=== PATIENT | male | born 1960 | race Caucasian/White ===

== ENCOUNTER → 2016-05-16 | Outpatient (CLI) | payer OTHER ==
[~2016-05-16] MED LIST: HYDR-5688 PO
--- NOTE | 2016-05-16 12:09 | DIAGNOSTIC IMAGING REPORT ---
TESTICULAR ULTRASOUND HISTORY: N50.819 Testicular pain pain left groin and testicle. Abnormal te COMPARISON: None. FINDINGS: Right testis: 4.8 x 2.8 x 2.5 cm. There are no intratesticular masses. Normal color flow. No hydrocele. The epididymis is unremarkable. Left testis: 4.5 x 2.2 x 3.2 cm. There are no intratesticular masses. Normal color flow. No hydrocele. There is a 1.7 cm epididymal head cyst.. IMPRESSION: 1. A 1.7 cm left epididymal head cyst. 2. Normal testes. Electronically signed by: Morris Hunter M.D. 05/16/2016 12:07 PM Dictated Date/Time: 05/16/2016 12:05 PM
== END | disposition home or self-care (01) ==
LOC: C.ULTR 11:12
PROVIDERS: ATTEND Family Medicine
DX: N50.819 Testicular pain, unspecified (principal)

== ENCOUNTER → 2016-05-28 | Outpatient (CLI) | payer OTHER ==
[2016-05-28 12:21] LABS: BASO % 0.5 %; BASO ABS # 0.03 K/uL (0-0.2); COMPLETE YES; EOS % 0.9 %; HEMATOCRIT 48.4 % (42-52); IG% 1.1 %; LYMPH % 36.6 %; LYMPH ABS # 2.37 K/uL (1.2-3.4); MEAN CELL VOLUME 85.2 fL (80-100); MEAN CORPUSCULAR HEMOGLOBIN 30.6 pg (25-34); MEAN PLATELET VOLUME 10.4 fL (7.4-10.4); MONO % 6.5 %; NEUT % 54.4 %; PLATELET COUNT 181 K/uL (130-400); RED BLOOD COUNT 5.68 M/uL (4.7-6.1); WHITE BLOOD COUNT 6.47 K/uL (4.8-10.8)
[2016-05-28 12:47] LABS: BLOOD UREA NITROGEN 21 mg/dl (7-18); BUN/CREATININE RATIO 18.6 (10-20); CALCIUM 9.2 mg/dl (8.5-10.1); CARBON DIOXIDE 27 mmol/L (21-32); CHLORIDE 105 mmol/L (98-107); GLUCOSE 87 mg/dl (70-99); POTASSIUM 4.5 mmol/L (3.5-5.1); SODIUM 141 mmol/L (136-145)
== END | disposition home or self-care (01) ==
LOC: C.CPL 11:43
PROVIDERS: ATTEND Surgery
DX: Z01.812 Encounter for preprocedural laboratory examination (principal); K40.90 Unilateral inguinal hernia, without obstruction or gangrene, not specified as recurrent; N43.40 Spermatocele of epididymis, unspecified

== ENCOUNTER → 2016-06-03 | Day surgery (SDC) | payer OTHER ==
[2016-06-02 12:31] VITALS: Ht 182.9 cm; Wt 109.1 kg
[~2016-06-03] VITALS: Ht 182.9 cm; Wt 109.1 kg
[~2016-06-03] MED LIST changes: +ATROPINE SULFATE 0.1 MG/ML 5ML SYR IV PRN; +BUPIVACAINE/EPINEPHRINE 0.5% MPF 1:200,000 30 ML VIAL ONE; +DEXAMETHASONE SOD INJ 4 MG/ML VIAL IV PRN; +DEXAMETHASONE SOD INJ 4 MG/ML VIAL ONE; +EpHEDrine SULFATE INJ 50 MG/ML AMP IV PRN; +FENTANYL CITRATE INJ 50 MCG/1 ML 2 ML VIAL ONE; +HYDROCODONE/ACETAMOPHEN 5/325MG TAB PO PRN; +IBUPROFEN 600 MG TAB PO PRN; +KETOROLAC TROMETHAMINE 30 MG/ML VIAL IV. PRN; +LABETALOL HCL IV 5 MG/ML 20ML IV PRN; +LACTATED RINGER'S 1000ML 1,000 ML IV SCH; +LIDOCAINE HCL 2% 2 ML VIAL (20MG/ML) ONE; +METOCLOPRAMIDE HCL INJ 5 MG/ML 2 ML VIAL IV PRN; +MIDAZOLAM HCL 1 MG/ML 2ML VIAL ONE; +MoRPHine SULFATE 10 MG/ML CARP/VIAL IV PRN; +MoRPHine SULFATE 4 MG/ML 1 ML CARP\\VIAL IV PRN; +ONDANSETRON INJ 2 MG/ML 2 ML VIAL IV PRN; +ONDANSETRON INJ 2 MG/ML 2 ML VIAL ONE; +PHENYLEPHRINE 100MCG/ML 5ML SYR IV PRN; +PROPOFOL IV EMULSION 10 MG/ML 20 ML VIAL IV ONE; +SODIUM CHLORIDE 0.9% 1000ML 1,000 ML IV SCH
--- NOTE | 2016-06-03 06:52 | History & Physical Bridge Note ---
H&P Re-Evaluation Bridge Note: I have examined the patient, reviewed the History & Physical and in the interval since the performance of the History & Physical I have noted the following changes of clinical significance: No changes noted
--- NOTE | 2016-06-03 06:54 | Discharge Instructions-SurgCtr ---
Discharge Instructions Visit Reason for Visit: Left Inguinal Hernia Discharge Discharge Diagnosis / Problem: left inguinal hernia Discharge Goals Goal(s): Decrease discomfort, Improve function Activity Recommendations Activity Limitations: as noted below Lifting Limitations: no more than 10 pounds Exercise/Sports Limitations: until after follow-up appointment May Resume Sexual Activity: after follow-up appointment Shower/Bathe: tomorrow Anesthesia . Post Anesthesia Instructions: If you have had General Anesthesia or IV Sedation: * Do not drive today. * Resume driving when surgeon permits. * Do not make important decisions or sign legal documents today. * Call surgeon for: 1. Temperature elevations greater than 101 degrees F. 2. Uncontrollable pain. 3. Excessive bleeding. 4. Persistent nausea and vomiting. 5. Medication intolerance (nausea, vomiting or rash). * For nausea and vomiting use only clear liquids such as: tea, soda, bouillon until nausea subsides, then gradually increase diet as tolerated. * If you have any concerns or questions, call your surgeon's office. If physician is unavailable and it is an emergency, call 911 or go to the nearest emergency room. . Instructions / Follow-Up Instructions / Follow-Up follow up with Dr. Capone in 1-2 weeks. Diet Recommendations Home Diet: resume previous diet Procedures Procedures Performed: open left inguinal hernia repair with mesh Pending Studies Studies pending at discharge: no Medical Emergencies . Who to Call and When: Medical Emergencies: If at any time you feel your situation is an emergency, please call 911 immediately. . Non-Emergent Contact Non-Emergency issues call your: Primary Care Provider, Surgeon Call Non-Emergent contact if: temperature is above 101, wound has increased drainage, wound has increased redness, wound has increased pain . . "Provider Documentation" section prepared by Javon Capone.
--- NOTE | 2016-06-03 08:28 | [facility] Operative Report ---
Operative Report Operative Date Jun 03, 2016. Pre-Operative Diagnosis left inguinal hernia Post-Operative Diagnosis large indirect inguinal hernia and large cord lipoma Procedure(s) Performed open left inguinal hernia repair with mesh excison cord lipoma Surgeon stevan Estimated Blood Loss 10 cc Findings large indirect inguinal hernia and large cord lipoma Specimens cord lipoma Anesthesia LMA Disposition Recovery Room / PACU I attest to the content of the Intraoperative Record and any orders documented therein. Any exceptions are noted below.
[2016-06-03] MEDS: FENTANYL CITRATE INJ 50 MCG/1 ML 2 ML VIAL IV PRN ×2 (08:45→09:12)
--- NOTE | 2016-06-03 09:20 | OPERATIVE REPORT ---
DATE OF OPERATION: 06/03/2016 PREOPERATIVE DIAGNOSIS: Left inguinal hernia. POSTOPERATIVE DIAGNOSES: 1. Large indirect left inguinal hernia. 2. Large cord lipoma. PROCEDURES: 1. Open left inguinal hernia repair with plug and patch mesh. 2. Excision of large cord lipoma. SURGEON: Dr. Capone. ESTIMATED BLOOD LOSS: 10 mL. COMPLICATIONS: No immediate. ANESTHESIA: General laryngeal mask airway. OPERATION AND FINDINGS: OPERATIVE NOTE: After informed consent was obtained, the patient was taken the operating suite and placed in supine position. After successful intubation a Strickland catheter was placed and the left groin was shaved and sterilely prepped and draped in usual fashion. An inguinal incision was made, a 10 blade scalpel and carried down through the soft tissue using electrocautery. The external oblique aponeurosis was skeletonized and incised with a fresh scalpel. Metzenbaum scissor was used to extend this incision distally through the external ring as well as for several centimeters proximally. Once in the inguinal canal, we were able to dissect the cord and cord structures bluntly away from surrounding structures. I was able to place a finger under the cord right at the pubic bone and then place a Hulen drain around it. We then began to inspect the cord. We found an extremely large cord lipoma as well as a very large indirect sac. We were able to tease the cord off the cord structures, clamped it and divided it and tied it using 2-0 Vicryl tied. The hernia sac was able to be bluntly teased off the cord and cord structures using small amounts of electrocautery. Once we got it down to its neck we did have a small hole in the hernia sac, which we primarily closed with 2-0 Vicryl. I was then able to dunk the sac back into the abdominal cavity. Due to the large size of the defect, I decided to use a plug and patch technique. I used a piece of polypropylene plug and placed into the whole and sutured it using 0 Ethibond in interrupted fashion to the surrounding musculature. There was no evidence of a direct defect. The cord and cord structures were skeletonize. There was adequate hemostasis. I then used a polypropylene as an onlay patch. It was secured distally to Chandu's ligament, laterally along the shelving portion of Poupart's ligament and medially along the midline musculature. The "arms" of the mesh were wrapped around behind the cord and cord structures and secured to underlying muscle. The mesh sat nice and tension free. I did identify the ilioinguinal nerve, sharply lysed it with a Metzenbaum scissor to prevent future cord entrapment. Again, there was adequate hemostasis. We did thoroughly irrigate the wound. I injected some Marcaine around the edges of the mesh as well as near the base of the cord for postoperative analgesia. The external oblique aponeurosis was closed using 2-0 Vicryl in a running fashion. Soft tissue was irrigated and closed using 3-0 Vicryl and 4-0 Monocryl for the skin. Some additional Marcaine was injected around the skin for postoperative analgesia. Ethibond glue was used as a dressing. The patient was awakened, extubated, and transferred to recovery in stable condition. I attest to the content of the Intraoperative Record and any orders documented therein. Any exceptio ns are noted below.
[2016-06-03 09:42] VITALS: TEMP 36.4
--- NOTE | 2016-06-03 09:58 | Anesthesia Progress Nt - [facility] ---
Anesthesia Post Op Note Date & Time Jun 03, 2016 at 09:57 Vital Signs Pain Intensity: 4.0 Vital Signs Past 12 Hours Date Time Temp Pulse Resp B/P Pulse Ox O2 Delivery O2 Flow Rate FiO2 06/03/16 09:42 36.4 61 16 111/64 94 Room Air 06/03/16 09:27 36.4 62 12 108/67 93 Room Air 06/03/16 09:27 64 13 93 06/03/16 09:27 64 13 06/03/16 09:23 108/67 06/03/16 09:22 60 10 98 06/03/16 09:22 60 10 06/03/16 09:18 125/66 06/03/16 09:17 56 7 06/03/16 09:17 57 7 97 06/03/16 09:13 109/68 06/03/16 09:12 57 13 96 06/03/16 09:12 58 13 06/03/16 09:08 110/66 06/03/16 09:07 62 17 93 06/03/16 09:07 62 17 06/03/16 09:06 66 14 06/03/16 09:06 62 14 93 06/03/16 09:03 114/69 06/03/16 09:01 64 10 06/03/16 09:01 36.4 62 12 110/73 95 Room Air 06/03/16 09:01 64 10 96 06/03/16 09:00 60 15 06/03/16 09:00 62 15 96 06/03/16 08:58 110/73 06/03/16 08:55 65 9 06/03/16 08:55 66 9 91 06/03/16 08:53 120/72 06/03/16 08:50 62 15 96 06/03/16 08:50 62 15 06/03/16 08:48 119/73 06/03/16 08:45 63 14 97 06/03/16 08:45 63 14 06/03/16 08:44 62 12 06/03/16 08:44 62 12 98 06/03/16 08:43 124/77 06/03/16 08:39 64 15 06/03/16 08:39 64 15 96 06/03/16 08:38 127/75 06/03/16 08:34 71 18 95 06/03/16 08:34 69 18 06/03/16 08:33 113/75 06/03/16 08:30 74 20 06/03/16 08:30 75 20 93 06/03/16 08:28 130/76 06/03/16 08:25 66 17 06/03/16 08:25 36.6 74 16 120/81 95 Diffusion Mask 6 06/03/16 08:25 66 17 95 06/03/16 06:26 36.4 69 16 126/83 96 Room Air Notes Mental Status: alert / awake / arousable, participated in evaluation Pt Amnestic to Procedure: Yes Nausea / Vomiting: adequately controlled Pain: adequately controlled Airway Patency, RR, SpO2: stable & adequate BP & HR: stable & adequate Hydration State: stable & adequate Anesthetic Complications: no major complications apparent
[2016-06-03 10:18] VITALS: BP 111/72; PULSE 68; O2SAT 96
== END | disposition home or self-care (01) ==
LOC: X.SURG 06:15
PROVIDERS: ATTEND Surgery
DX: K40.90 Unilateral inguinal hernia, without obstruction or gangrene, not specified as recurrent (principal); Z98.890 Other specified postprocedural states; Z68.33 Body mass index [BMI] 33.0-33.9, adult; Z82.49 Family history of ischemic heart disease and other diseases of the circulatory system; Z83.3 Family history of diabetes mellitus

== ENCOUNTER → 2017-06-09 | Outpatient (CLI) | payer OTHER | END | disposition home or self-care (01) | LOC: C.LABPVFM 10:32 | PROVIDERS: ATTEND Urology | DX: N40.1 Benign prostatic hyperplasia with lower urinary tract symptoms (principal) ==

== ENCOUNTER → 2017-06-25 | Outpatient (CLI) | payer OTHER ==
[2017-06-25 12:37] LABS: HEMATOCRIT 47.7 % (42-52); HEMOGLOBIN 17.3 g/dL (14.0-18.0); MEAN CORPUSCULAR HEMOGLOBIN 30.8 pg (25-34); MEAN CORPUSCULAR HGB CONC 36.3 g/dl (32-36); MEAN PLATELET VOLUME 10.6 fL (7.4-10.4); PLATELET COUNT 184 K/uL (130-400); RED CELL DISTRIBUTION WIDTH CV 13.1 % (11.5-14.5); RED CELL DISTRIBUTION WIDTH SD 40.8 fL (36.4-46.3); WHITE BLOOD COUNT 5.53 K/uL (4.8-10.8)
[2017-06-25 12:54] LABS: HEMOGLOBIN A1C 5.3 % (4.5-5.6)
[2017-06-25 13:21] LABS: BLOOD UREA NITROGEN 21 mg/dl (7-18); CREATININE 1.15 mg/dl (0.60-1.40); GLUCOSE 113 mg/dl (70-99)
[2017-06-25 13:22] LABS: ALBUMIN 4.1 gm/dl (3.4-5.0); ALT/SGPT 38 U/L (12-78); AST/SGOT 23 U/L (15-37); CALCIUM 8.9 mg/dl (8.5-10.1); CARBON DIOXIDE 25 mmol/L (21-32); CHOLESTEROL 186 mg/dl (0-200); POTASSIUM 4.3 mmol/L (3.5-5.1); SODIUM 137 mmol/L (136-145)
[2017-06-25 13:24] LABS: ALKALINE PHOSPHATASE 62 U/L (45-117); LDL CHOLESTEROL CALCULATED 118 mg/dl; TOTAL PROTEIN 7.1 gm/dl (6.4-8.2)
== END | disposition home or self-care (01) ==
LOC: C.LABPVFM 08:11
PROVIDERS: ATTEND Family Medicine
DX: Z00.00 Encounter for general adult medical examination without abnormal findings (principal)

== ENCOUNTER 2024-04-25 19:39 | Observation (INO) ==
[2024-04-25] MEDS: ONDANSETRON INJ 2 MG/ML 2 ML VIAL IV STA (20:13)
[2024-04-25] MEDS: KETOROLAC TROMETHAMINE 15 MG/ML VIAL IV STA ×2 (20:14→23:28)
[2024-04-25 20:25] LABS: Basophils # (auto) 0.03 K/uL (0.00-0.20); Basophils % (auto) 0.3 %; Eosinophils # (auto) 0.01 K/uL (0.00-0.50); Eosinophils % (auto) 0.1 %; Hematocrit (blood only) 47.2 % (42.0-52.0); Hemoglobin 16.7 g/dl (14.0-18.0); Immature Granulocytes # (auto) 0.07 K/uL (0.01-0.20); Immature Granulocytes % (auto) 0.7 %; Lymphocytes # (auto) 1.07 K/uL (1.20-3.40); Lymphocytes % (auto) 10.5 %; Mean Corpuscular Hemoglobin 29.9 pg (25.0-34.0); Mean Corpuscular Hgb Conc 35.4 g/dL (32.0-36.0); Mean Corpuscular Volume 84.4 fL (80.0-100.0); Mean Platelet Volume 10.2 fL (9.4-12.4); Monocytes # (auto) 0.45 K/uL (0.11-0.59); Monocytes % (auto) 4.4 %; Neutrophils # (auto) 8.59 K/uL (1.40-6.50); Platelet Count 176 K/uL (130-400); RDW Coefficient of Variation 12.6 % (11.5-14.5); RDW Standard Deviation 38.7 fL (36.4-46.3); Red Blood Count 5.59 M/uL (4.70-6.10); White Blood Count 10.22 K/ul (4.8-10.8)
[2024-04-25 20:39] LABS: BUN Creatinine Ratio 17.6 (10-20); Calcium 9.5 mg/dl (8.6-10.3); Creatinine Clr Calc Pharmacy 76.6 ml/min; Potassium 4.3 mmol/L (3.5-5.1)
[2024-04-25] MEDS: SODIUM CHLORIDE 0.9% 1,000 ML IV ONE (21:35)
--- NOTE | 2024-04-25 23:05 | CT Scan Report ---
Exam(s): CT ABDOMEN + PELVIS Without Contrast EXAM: CT Abdomen and Pelvis Without Intravenous Contrast CLINICAL HISTORY: flank pain. TECHNIQUE: Axial computed tomography images of the abdomen and pelvis without intravenous contrast. CTDI is 27.1 mGy and DLP is 1484.98 mGy-cm. Automated exposure control was utilized for the study. A dose lowering technique was utilized adhering to the principles of ALARA. COMPARISON: 03-31-2021 FINDINGS: Lung bases: Unremarkable. No mass. No consolidation. ABDOMEN: Liver: Unchanged 4 mm hypodense lesion right lobe of liver to small to characterize. Gallbladder and bile ducts: Unremarkable. No calcified stones. No ductal dilation. Pancreas: Unremarkable. No ductal dilation. Spleen: Unremarkable. No splenomegaly. Adrenals: Unremarkable. No mass. Kidneys and ureters: Mild right perinephric stranding. Mild right hydronephrosis and diffuse hydroureter to the level of a obstructing 4.9 x 4.2 mm calculus in the distal right ureter just proximal to the ureterovesicular junction. Punctate nonobstructing calculus in the midpole of the right kidney. Left kidney and ureter are unremarkable. Stomach and bowel: No obstruction or ileus. Scattered colonic diverticuli without evidence for diverticulitis. PELVIS: Appendix: No findings to suggest acute appendicitis. Bladder: Partially contracted. No stones. Reproductive: Unremarkable as visualized. ABDOMEN and PELVIS: Intraperitoneal space: No free air. No free fluid. Bones/joints: No acute fracture. Degenerative changes of the spine. Soft tissues: Unremarkable. Vasculature: Unremarkable. No abdominal aortic aneurysm. Lymph nodes: Unremarkable. No enlarged lymph nodes. IMPRESSION: Obstructing distal right ureteral calculus with associated right perinephric stranding and mild right hydronephrosis and diffuse hydroureter. Additional punctate nonobstructing right renal calcification. Scattered colonic diverticulosis without diverticulitis. 4 mm hypodense lesion in the right lobe of liver too small to characterize, unchanged from 2020. For patients with a low risk of malignancy, no further follow-up is necessary. For patients with high risk of malignancy (known malignancy with a propensity to metastasize to the liver, cirrhosis, and/or other hepatic risk factors), recommend follow-up abdominal MR in 3-6 months. Electronically signed by: Constantin Angel M.D. 04/25/24 23:04 PM
--- NOTE | 2024-04-25 23:16 | History & Physical Report ---
Date of Service April 25, 2024 Assessment & Plan (1) Hydronephrosis concurrent with and due to calculi of kidney and ureter: Plan: -CBC benign, BMP benign, -CT abdomen pelvis showed obstructing distal right ureteral calculus with associated right perinephric stranding and mild right hydronephrosis and diffuse hydroureter. -UA pending collection, patient is not able to urinate since 3 PM. Will start on ceftriaxone given possibility of UTI. -Started on NSS at 125 mL/hour -Start oxybutynin, Flomax, finasteride. -Toradol and morphine as needed for pain. -Zofran as needed for nausea. -Will keep n.p.o. and consult urology for possible intervention in the AM. (2) BPH (benign prostatic hyperplasia): Plan: -Has a history of BPH with lower urinary tract symptoms. History of TURP in April 2022. -Follows with urology. (3) Liver lesion: Plan: -Seen on CT of the abdomen pelvis -4 mm hypodense lesion in the right lobe of liver too small to characterize, unchanged from 2020. Follow-up with PCP History of Present Illness Chief Complaint: Obstructing kidney stone with hydro Primary Care Provider: Leticia Johnson MD Patient is a 63-year-old male with past medical history of BPH status post TURP who presents to the hospital with right-sided back and flank pain that started around 3 PM today. States that the pain is sharp and stabbing. Patient states that he has not been able to urinate since this time. He started to have some nausea and vomiting as well. Denies any abdominal pain. Denies any fevers or chills. Denies any diarrhea, hematuria, headache, chest pain, or shortness of breath. Allergies Allergy/AdvReac Type Severity Reaction Status Date / Time No Known Allergies Allergy Mild Verified 06/30/23 13:44 Home Medications Medication Instructions Recorded Confirmed Type finasteride 5 mg tablet 5 mg PO DAILY #90 tabs 07/21/23 11/02/23 Rx oxybutynin chloride 10 mg 10 mg PO DAILY #90 tabs 07/21/23 11/02/23 Rx tablet,extended release 24 hr tamsulosin 0.4 mg capsule 0.4 mg PO DAILY #90 caps 07/21/23 11/02/23 Rx Past Med/Surg History Problem List Liver lesion Hydronephrosis concurrent with and due to calculi of kidney and ureter (Acute) Urinary urgency Routine health maintenance Acute UTI Gilbert's syndrome pt unaware Obesity Encounter for pre-operative examination Hx of hernia repair Encounter for wellness examination in adult (Chronic) Left groin pain BPH with obstruction/lower urinary tract symptoms Abdominal pain Pancreatic lesion Cough Abnormal glucose Cough, persistent Encounter for screening for diabetes mellitus Encounter for screening for malignant neoplasm of colon Hyperbilirubinemia Incomplete emptying of bladder Inguinal hernia Neoplasm of uncertain behavior of skin Nocturia SOB (shortness of breath) on exertion Spermatocele Testicular pain Screening PSA (prostate specific antigen) History of colon polyps Intraductal papillary mucinous neoplasm of pancreas Monitoring at [facility] [place] Summer 2021 -- monitoring annually. Hx of left inguinal hernia repair (~2016) Medical History History of COVID-19 03/2021 Pneumonia due to COVID-19 virus Hx -- 03/2021. No current issues BPH (benign prostatic hyperplasia) Surgical History History of tonsillectomy S/P trigger finger release History of colonoscopy Hx of foot surgery Achilles Tendon repair (unsure of side) Family History Other No family history of adverse response to anesthesia Denies family history of Ovarian cancer Prostate cancer Myocardial infarction Breast cancer Colorectal cancer Social History Smoking Status: Never smoker Second Hand Exposure: No; Do You Dip or Chew Tobacco: No; Tobacco Cessation Education Requested by Patient: No Hx Alcohol Use: No Hx Substance Use: No Preferred Language: [place]an Communication Ability: Effective [employer] Material [employer] Required: No Beliefs That Will Affect Care: None marital status: Current Living Situation: Spouse current occupational status: employed How many Children do You have: 4 Other Information That Helps Us Care for You: No Feels Safe at Home: Yes Safety Concerns: Feels Safe At This Time Childhood Exposure to Second-Hand Smoke: No Diet: regular caffeine: Yes Dental Care, Regularly: Yes Physical Activity Frequency: Daily Seatbelt Use: always Sunscreen Use: Yes Assistive Devices: None Review of Systems Review of Systems: All systems reviewed & are unremarkable except as noted in Subjective Physical Exam Physical Exam: Constitutional: well-appearing, no acute distress HEENT: NCAT, no conjunctival injection CV: regular rhythm, no murmur appreciated, extremities well-perfused, no LE edema Resp: CTABL, no wheezes/rales/rhonchi appreciated, no increased work of breathing GI: soft, nondistended, BS normoactive MSK: Right-sided flank pain, right-sided CVA tenderness Skin: warm, dry, no rash appreciated Neuro: alert, oriented, no focal neurologic deficit appreciated Results & Data Results & Data Vital Signs (Past 12 Hours) Vital Signs Temp Pulse Pulse Resp BP BP Pulse Ox 04/25/24 21:33 65 18 109/65 94 04/25/24 19:44 36.6 C 94 H 16 126/90 97 O2 Del Method 04/25/24 21:33 Room Air 04/25/24 19:44 Room Air Supervising Physician Co-Signing Physician Notes Patient seen and examined, chart reviewed, case discussed with Dr. Langford and I agree with the assessment and plan as above Resident Activity Tracking Resident Involvement: Resident Care Provided Care Provided: Adult Hospital Medicine
--- NOTE | 2024-04-25 23:17 | Emergency Department Note ---
History of Present Illness General Chief Complaint: Kidney Stone Stated Complaint: KIDNEY PAIN, VOMIT, Time Seen by Provider: 04/25/24 19:47 History of Present Illness Provider Complaint: flank pain Onset (ago): 1 day(s) Pain Consistency: intermittent Location: R flank Radiation: RLQ and back Maximum Pain Intensity: 8 Current Pain Intensity: 8 Quality: + stabbing and + sharp Relieved By: + nothing Exacerbated By: + nothing Context: no foreign travel, no possible food poisoning, no sick contacts, no recent antibiotic use, no recent surgery/procedure or no recent injury Associated Symptoms: + nausea and + vomiting; no diarrhea, no fever, no chills, no constipation, no dysuria, no hematemesis, no hematochezia, no melena, no hematuria, no headache, no chest pain and no breathing difficulty Difficulty urinating Home Medications Medication Instructions Recorded Confirmed Type finasteride 5 mg tablet 5 mg PO DAILY #90 tabs 07/21/23 11/02/23 Rx oxybutynin chloride 10 mg 10 mg PO DAILY #90 tabs 07/21/23 11/02/23 Rx tablet,extended release 24 hr tamsulosin 0.4 mg capsule 0.4 mg PO DAILY #90 caps 07/21/23 11/02/23 Rx Allergies Allergy/AdvReac Type Severity Reaction Status Date / Time No Known Allergies Allergy Mild Verified 06/30/23 13:44 Past Med/Surg History Problem List Hydronephrosis concurrent with and due to calculi of kidney and ureter (Acute) Urinary urgency Routine health maintenance Acute UTI Gilbert's syndrome pt unaware Obesity Encounter for pre-operative examination Hx of hernia repair Encounter for wellness examination in adult (Chronic) Left groin pain BPH with obstruction/lower urinary tract symptoms Abdominal pain Pancreatic lesion Cough Abnormal glucose Cough, persistent Encounter for screening for diabetes mellitus Encounter for screening for malignant neoplasm of colon Hyperbilirubinemia Incomplete emptying of bladder Inguinal hernia Neoplasm of uncertain behavior of skin Nocturia SOB (shortness of breath) on exertion Spermatocele Testicular pain Screening PSA (prostate specific antigen) History of colon polyps Intraductal papillary mucinous neoplasm of pancreas Monitoring at [facility] Summer 2021 -- monitoring annually. Hx of left inguinal hernia repair (~2016) Medical History History of COVID-19 03/2021 Pneumonia due to COVID-19 virus Hx -- 03/2021. No current issues BPH (benign prostatic hyperplasia) Surgical History History of tonsillectomy S/P trigger finger release History of colonoscopy Hx of foot surgery Achilles Tendon repair (unsure of side) Family History Other No family history of adverse response to anesthesia Denies family history of Ovarian cancer Prostate cancer Myocardial infarction Breast cancer Colorectal cancer Social History Smoking Status: Never smoker Second Hand Exposure: No; Do You Dip or Chew Tobacco: No; Hx Alcohol Use: Yes Alcohol type: beer Hx Substance Use: No Preferred Language: Hungarian Communication Ability: Effective 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 Beliefs That Will Affect Care: None marital status: Current Living Situation: Spouse current occupational status: employed How many Children do You have: 4 Feels Safe at Home: Yes Childhood Exposure to Second-Hand Smoke: No Diet: regular caffeine: Yes Dental Care, Regularly: Yes Physical Activity Frequency: Daily Seatbelt Use: always Sunscreen Use: Yes Assistive Devices: None Physical Exam 2 Vital Signs: Vital Signs - 24 hr 04/25/24 19:44 04/25/24 21:33 Temperature 36.6 C Temperature Source Temporal Artery Sc an Pulse Rate 94 H Pulse Rate [Finger ] 65 Respiratory Rate 16 18 Respiratory Effort / Characteristics Non-Labored Non-Labored Sponta neous Respiratory Depth Normal Normal Respiratory Patter n Regular Regular Blood Pressure 126/90 Blood Pressure [Le ft Arm] 109/65 Blood Pressure Christa n 102 Blood Pressure Christa n [Left Arm] 79 Pulse Oximetry 97 94 Oxygen Delivery Me thod Room Air Room Air Sepsis Recent Feve r Within 48 Hours No Sepsis New/Unexpla ined Change in Men vicente Status N/A Sepsis Action Take n by Nursing No Action Required Physical Exam: Physical Exam GENERAL: oriented to person, place, and time. appears well-developed and well- nourished. She does not appear distressed. HENT: Exam performed. -Head: Normocephalic and atraumatic. -Right Ear: External ear normal. No mastoid erythema -Left Ear: External ear normal. No mastoid erythema -Mouth/Throat: The oropharynx is clear and moist. No trismus in the jaw. No dental abscesses or uvula swelling. No oropharyngeal exudate or tonsillar abscesses. EYES: Conjunctivae and EOM are normal.Right eye exhibits no discharge. Left eye exhibits no discharge. No scleral icterus. NECK: Normal range of motion. Neck supple. No JVD present. No tracheal deviation and normal range of motion present. CV: Normal rate, regular rhythm, normal heart sounds and intact distal pulses. There is no peripheral edema. Palpable radial pulses bue. PULM/CHEST: Effort normal and breath sounds normal. No respiratory distress. No stridor. no wheezes.no rales. -Chest Wall: no tenderness to palpation ABD: The abdomen is soft. Bowel sounds are normal. no distension. No mass is present. There is no tenderness. There is no rebound, no guarding, no Meade's sign and no tenderness at McBurney's point. Rovsig negative. Right-sided CVA tenderness. MUSC/SKEL: Normal range of motion. There is no peripheral edema, tenderness or deformity. NEURO: Motor and sensation grossly intact. SKIN: Skin is warm and dry. not diaphoretic. PSYCH: normal mood and affect. Behavior is normal. Judgment and thought content normal. Course Course 1946: The patient was evaluated in room A3. A complete history and physical exam was performed Cardiac monitoring: An order was placed for continuous cardiac monitoring. The monitor shows a rate of 60 with sinus rhythm interpreted by nv [id number]: Vital signs stable. Labs within normal limits. Patient unable to give urine sample still. CT shows a right-sided kidney stone with stranding and obstruction. Given that the patient is unable to urinate, still having pain, will admit to the hospital service for pain control and IV fluids and to be evaluate by urology in the morning. Discussed case with Dr. Duckworth who evaluate the patient for admission. Administered Medications Discontinued Medications Sodium Chloride (Nss) 1,000 mls @ 999 mls/hr IV .Q1H1M ONE Stop: 04/25/24 22:32 Last Infusion: 04/25/24 22:37 Dose: Infused Documented By: Admin: 04/25/24 21:35 Dose: 999 mls/hr Documented By: CIRA Ketorolac Tromethamine (Ketorolac Tromethamine 15 Mg/Ml Vial) 15 mg IV NOW STA Stop: 04/25/24 19:48 Last Admin: 04/25/24 20:14 Dose: 15 mg Documented By: CIRA Ondansetron HCl (Ondansetron Inj 2 Mg/Ml 2 Ml Vial) 4 mg IV NOW STA Stop: 04/25/24 19:48 Last Admin: 04/25/24 20:13 Dose: 4 mg Documented By: CIRA Medical Decision Making Laboratory Data Attestation: I reviewed the patient's lab results. 04/25/24 20:10 04/25/24 20:10 Lab Results 04/25/24 Range/Units 20:10 WBC 10.22 (4.8-10.8) K/ul RBC 5.59 (4.70-6.10) M/uL Hgb 16.7 (14.0-18.0) g/dl Hct 47.2 (42.0-52.0) % MCV 84.4 (80.0-100.0) fL MCH 29.9 (25.0-34.0) pg MCHC 35.4 (32.0-36.0) g/dL RDW Std Deviation 38.7 (36.4-46.3) fL RDW Coeff of Alonso 12.6 (11.5-14.5) % Plt Count 176 (130-400) K/uL MPV 10.2 (9.4-12.4) fL Immature Gran % (Auto) 0.7 % Neut % (Auto) 84.0 % Lymph % (Auto) 10.5 % [place] % (Auto) 4.4 % Eos % (Auto) 0.1 % Baso % (Auto) 0.3 % Neut # (Auto) 8.59 H (1.40-6.50) K/uL Lymph # (Auto) 1.07 L (1.20-3.40) K/uL [place] # (Auto) 0.45 (0.11-0.59) K/uL Eos # (Auto) 0.01 (0.00-0.50) K/uL Baso # (Auto) 0.03 (0.00-0.20) K/uL Immature Gran # (Auto) 0.07 (0.01-0.20) K/uL Sodium 139 (136-145) mmol/L Potassium 4.3 (3.5-5.1) mmol/L Chloride 105 (98-107) mmol/L Carbon Dioxide 25 (21-32) mmol/L Anion Gap 9 (3-11) BUN 22 (6-23) mg/dl Creatinine 1.25 (0.6-1.4) mg/dl Est Cr Clr Drug Dosing 76.6 ml/min eGFR 65.11 BUN/Creatinine Ratio 17.6 (10-20) Glucose 158 H (70-99(Fasting)) mg/dl Calcium 9.5 (8.6-10.3) mg/dl Imaging Data Radiologist's Impression: Abdomen/Pelvis CT 04/25/24 19:48 Exam(s): CT ABDOMEN + PELVIS Without Contrast EXAM: CT Abdomen and Pelvis Without Intravenous Contrast CLINICAL HISTORY: flank pain. TECHNIQUE: Axial computed tomography images of the abdomen and pelvis without intravenous contrast. CTDI is 27.1 mGy and DLP is 1484.98 mGy-cm. Automated exposure control was utilized for the study. A dose lowering technique was utilized adhering to the principles of ALARA. COMPARISON: 03-31-2021 FINDINGS: Lung bases: Unremarkable. No mass. No consolidation. ABDOMEN: Liver: Unchanged 4 mm hypodense lesion right lobe of liver to small to characterize. Gallbladder and bile ducts: Unremarkable. No calcified stones. No ductal dilation. Pancreas: Unremarkable. No ductal dilation. Spleen: Unremarkable. No splenomegaly. Adrenals: Unremarkable. No mass. Kidneys and ureters: Mild right perinephric stranding. Mild right hydronephrosis and diffuse hydroureter to the level of a obstructing 4.9 x 4.2 mm calculus in the distal right ureter just proximal to the ureterovesicular junction. Punctate nonobstructing calculus in the midpole of the right kidney. Left kidney and ureter are unremarkable. Stomach and bowel: No obstruction or ileus. Scattered colonic diverticuli without evidence for diverticulitis. PELVIS: Appendix: No findings to suggest acute appendicitis. Bladder: Partially contracted. No stones. Reproductive: Unremarkable as visualized. ABDOMEN and PELVIS: Intraperitoneal space: No free air. No free fluid. Bones/joints: No acute fracture. Degenerative changes of the spine. Soft tissues: Unremarkable. Vasculature: Unremarkable. No abdominal aortic aneurysm. Lymph nodes: Unremarkable. No enlarged lymph nodes. IMPRESSION: Obstructing distal right ureteral calculus with associated right perinephric stranding and mild right hydronephrosis and diffuse hydroureter. Additional punctate nonobstructing right renal calcification. Scattered colonic diverticulosis without diverticulitis. 4 mm hypodense lesion in the right lobe of liver too small to characterize, unchanged from 2020. For patients with a low risk of malignancy, no further follow-up is necessary. For patients with high risk of malignancy (known malignancy with a propensity to metastasize to the liver, cirrhosis, and/or other hepatic risk factors), recommend follow-up abdominal MR in 3-6 months. Electronically signed by: Constantin Angel M.D. 04/25/24 23:04 PM [facility] [place] Narrative 194: The patient was evaluated in room A3. A complete history and physical exam was performed Cardiac monitoring: An order was placed for continuous cardiac monitoring. The monitor shows a rate of 60 with sinus rhythm interpreted by nv 2319: Vital signs stable. Labs within normal limits. Patient unable to give urine sample still. CT shows a right-sided kidney stone with stranding and obstruction. Given that the patient is unable to urinate, still having pain, will admit to the hospital service for pain control and IV fluids and to be evaluate by urology in the morning. Discussed case with Dr. Duckworth who evaluate the patient for admission. Impression & Plan Hydronephrosis concurrent with and due to calculi of kidney and ureter Discharge Plan Visit Data Chief Complaint: Kidney Stone Stated Complaint: KIDNEY PAIN, VOMIT, ED Provider: Taras Gonzalez Discharge Problem: Hydronephrosis concurrent with and due to calculi of kidney and ureter Patient Disposition: Admitted As Inpatient Forms Stand Alone Forms: [facility] Prescriptions Prescriptions: No Action finasteride 5 mg tablet 5 mg PO DAILY Qty: 90 3RF tamsulosin 0.4 mg capsule 0.4 mg PO DAILY Qty: 90 3RF oxybutynin chloride 10 mg tablet extended release 24hr 10 mg PO DAILY Qty: 90 3RF Referrals Referrals: Leticia Johnson MD [Primary Care Provider] -
[2024-04-25] MEDS: cefTRIAXone SODIUM 2,000 MG/50 ML BAG IV SCH (23:28)
[2024-04-25] MEDS: SODIUM CHLORIDE 0.9% 1,000 ML IV SCH (23:28)
[2024-04-26] MEDS ORDERED: MoRPHine SULFATE 4 MG/ML 1 ML CARP\\VIAL IV PRN (00:49)
[2024-04-26] MEDS ORDERED: KETOROLAC TROMETHAMINE 15 MG/ML VIAL IV PRN (00:49)
[2024-04-26] MEDS ORDERED: ONDANSETRON INJ 2 MG/ML 2 ML VIAL IV PRN ×2 (00:49→16:04)
[2024-04-26] MEDS ORDERED: MoRPHine SULFATE 2 MG/ML CARP IV PRN (00:49)
[2024-04-26] MEDS: SODIUM CHLORIDE 0.9% 1,000 ML IV SCH ×2 (00:55→11:53)
--- NOTE | 2024-04-26 07:00 | Billing Data ---
Date of Service April 25, 2024 Coding Level of Care Code 67676 INT INP/OBS CARE
--- OUTSIDE RECORDS SUMMARY | 2024-04-26 07:27 | External Medical Summary | Continuity of Care Document ---
Author Name Unknown Organization [facility] Address [address] [place] [id number] Care Team Providers Care Processing Supervisor Name Role Phone Leticia Johnson Primary Care Physician [phone] [facility]counter [facility] [id number] Date(s): 01/05/24 - 01/05/[address] [phone] Discharge Disposition: Home or Self Care Attending Physician: CODEY Witt Brandon E Referring Physician: CODEY Witt Brandon E Allergies, Adverse Reactions, Alerts No Known Allergies Medications oxybutynin 10 mg/24 hr oral tablet, extended release Start: 07/15/22 8:39:00 AM EST Start Date: 07/15/22 Status: Ordered tamsulosin 0.4 mg oral capsule Start: 07/15/22 8:38:00 AM EST Start Date: 07/15/22 Status: Ordered Problem List Condition Confirmation Course Effective Dates Status Health St [facility] Informant Pancreatic cyst Confirmed Active Right shoulder pain Confirmed Active Hepatic steatosis Confirmed Active Procedures Procedure Date Related Diagnosis Body Site Status MRCP - Magnetic resonance cholangiopancreatography 1 01/08/[address] of abdomen and pelvis 2 06/29/20 Completed Achilles tendon repair Co mpleted HERNIA REPAIR W/MESH 3 Co mpleted 11) Normal MRCP assessment of the gallbladder and biliary tree. 2) MRCP confirms the presence of an 11 mm cystic structure within the pancreatic head/uncinate process along the course of the main pancreatic duct, as well as a second similar-appearing 2 mm cystic focus. These are typical for small sidebranch IPMNs. 3) Hepatomegaly and hepatic steatosis. 4) Additional findings as above. 21) No bowel wall thickening or obstruction. 2) Evidence for prior left inguinal hernia repair. There is a small fat- containing right inguinal hernal 3) Colonic diverticulosis. NO evidence for acute diverticular disease. 4) Hepatic steatosis 5) There is 1.2 cm hypodense focus with in the uncinate process of the pancreas. This is incompletely characterized on this study but favors a small sige branch intraductal papillary mucinous neoplasm. 6 month MRCP f/u can be performed for confirmation. 3left groin Results Radiology Reports * Exam Date Time Procedure Performing Provider Status 01/05/24 11:22 AM MRI Abdomen w/ + w/o Contrast Glenis Gomez; Final Notes: (MRI Abdomen w/ + w/o Contrast) Reason For Exam: Pancreatic Cyst MRI Abdomen w/ + w/o Contrast EXAMINATION: MRI Abdomen w/ + w/o Contrast CLINICAL HISTORY: Pancreatic Cyst COMPARISON: MRI dated 01/06/2023 TECHNIQUE: MRI Abdomen w/ + w/o Contrast CONTRAST: Contrast Type (IV): Gadavist Contrast Volume (IV) in ml: 11.00 Contrast Type (Oral): Contrast Volume (Oral) in ml: FINDINGS: Lower chest: No pleural effusion. ABDOMEN Liver, Gallbladder \T\ bile ducts: Unchanged hepatic cysts. No ductal dilatation. Normal gallbladder. Pancreas: Stable cystic lesion within the head of the pancreas measuring 1.4 cm with ductal communication. No pancreatic ductal dilation. No suspicious imaging features. Spleen: Normal Adrenals: Normal Kidneys, collecting system and ureters: No hydronephrosis. Unchanged cyst. Retroperitoneum, lymph nodes, and vessels: Normal Bowel \T\ Mesentery: No bowel obstruction Osseous and body wall: No acute osseous abnormality. IMPRESSION: Stable cystic lesion within the head of the pancreas likely representing side branch IPMN, no suspicious imaging features. [place] Act 112: This study does not meet the requirements of [place] Act 112. NON-EMERGENT ACTIONABLE FINDINGS Recommendation: None. [REC0] Workstation ID: [id number] Final Dictated by:Amol Ku MD, Hussain Dictated DT/TM:01/05/2024 2:30 Signed by:Amol Ku MD, Hussain Signed (Electronic Signature):01/05/2024 2:29 p Social History Social History Type Response Smoking Status Never smoked cigaret anne Sex Sex Representation Male (finding) Patient Care team information Care Team Personnel Name: MD Johnson Tamar Position: Referring Member Role: Primary Care Provider Address: [address] [place] [address] [place] Care Team Related Persons Name: ALYSON HWANG Name: ALYSON HWANG
[2024-04-26 08:07] LABS: Hematocrit (blood only) 46.2 % (42.0-52.0); Mean Corpuscular Hemoglobin 29.9 pg (25.0-34.0); Mean Corpuscular Hgb Conc 34.6 g/dL (32.0-36.0); Mean Corpuscular Volume 86.2 fL (80.0-100.0); Mean Platelet Volume 10.5 fL (9.4-12.4); Platelet Count 153 K/uL (130-400); RDW Coefficient of Variation 12.7 % (11.5-14.5); RDW Standard Deviation 39.6 fL (36.4-46.3); Red Blood Count 5.36 M/uL (4.70-6.10)
[2024-04-26 08:28] LABS: Calcium 8.4 mg/dl (8.6-10.3); Creatinine Clr Calc Pharmacy 79.5 ml/min
[2024-04-26] MEDS: TAMSULOSIN HCL 0.4 MG CAP PO SCH (08:38)
[2024-04-26] MEDS: FINASTERIDE 5 MG TAB PO SCH (08:38)
[2024-04-26] MEDS: OXYBUTYNIN CHLORIDE XL 5 MG TABCR PO SCH (08:38)
--- NOTE | 2024-04-26 11:35 | Urology Consultation ---
Date of Consultation April 26, 2024 Assessment & Plan (1) Hydronephrosis concurrent with and due to calculi of kidney and ureter: 63-year-old male admitted for right flank pain secondary to an obstructing 4.9 x 4.2 mm right distal ureteral calculus. Patient afebrile and hemodynamically stable. Labs reviewed creatinine 1.21, WBC 7.8, hemoglobin 16.0. Patient has been voiding spontaneously since this am. No UA pending at this time. Subjectively feeling better since arrival. Discussed options including trial of passage and outpatient management versus surgical intervention today with ureteroscopy and stone treatment. After discussion with patient and spouse, he prefers surgical intervention toda y. Proceed to OR today for cystoscopy, right ureteroscopy, laser lithotripsy and right ureteral stent placement. Risks and benefits of procedure to be reviewed with patient by Dr. Crowell. Keep n.p.o. for procedure. Patient was covered with Ceftriaxone in the ED. Continue supportive care and medical management per hospital medicine service. Patient can likely be discharged after intervention presuming he recovers appropriately. History of Present Illness Attending Physician: Julio Cesar Layton MD History of Present Illness This is a 63-year-old male with history of BPH with lower urinary tract symptoms who presented to the emergency department on 04/25/2024 for evaluation of acute onset of right flank pain and vomiting. On arrival to ED, he was afebrile and hemodynamically stable. Labs reviewed and creatinine 1.25, WBC 10.22, hemoglobin 16.7. Workup included CT abdomen and pelvis without contrast which demonstrated right hydronephrosis and hydroureter secondary to an obstructing 4.9 x 4.2 mm calculus in the distal right ureter just proximal to the UVJ. Punctate nonobstructing calculus in the right kidney. He did not void in ED. ED course: IV fluids, ketorolac and ondansetron. He was admitted to the hospital medicine service for pain management. Urology is consulted for ureteral calculus. Patient seen and examined at bedside this morning. He is awake and resting in bed. No flank pain at present. Denies nausea or vomiting at present. He has not voided since arrival. Nursing performed bladder scan prior to my arrival this am which was 244 mL. No prior stone history. He follows with Dr. Carlisle for BPH with LUTS. Currently NPO. Allergies Allergy/AdvReac Type Severity Reaction Status Date / Time No Known Allergies Allergy Mild Verified 06/30/23 13:44 Home Medications Medication Instructions Recorded Confirmed Type finasteride 5 mg tablet 5 mg PO DAILY #90 tabs 07/21/23 11/02/23 Rx oxybutynin chloride 10 mg 10 mg PO DAILY #90 tabs 07/21/23 11/02/23 Rx tablet,extended release 24 hr tamsulosin 0.4 mg capsule 0.4 mg PO DAILY #90 caps 07/21/23 11/02/23 Rx Patient History Medical History History of COVID-19 03/2021 Pneumonia due to COVID-19 virus Hx -- 03/2021. No current issues BPH (benign prostatic hyperplasia) Surgical History History of tonsillectomy S/P trigger finger release History of colonoscopy Hx of foot surgery Achilles Tendon repair (unsure of side) Family History Other No family history of adverse response to anesthesia Denies family history of Ovarian cancer Prostate cancer Myocardial infarction Breast cancer Colorectal cancer Social History Smoking Status: Never smoker Second Hand Exposure: No; Do You Dip or Chew Tobacco: No; Tobacco Cessation Education Requested by Patient: No Hx Alcohol Use: No Hx Substance Use: No Preferred Language: Cook Islander Communication Ability: Effective 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 Beliefs That Will Affect Care: None marital status: Current Living Situation: Spouse current occupational status: employed How many Children do You have: 4 Other Information That Helps Us Care for You: No Feels Safe at Home: Yes Safety Concerns: Feels Safe At This Time Childhood Exposure to Second-Hand Smoke: No Diet: regular caffeine: Yes Dental Care, Regularly: Yes Physical Activity Frequency: Daily Seatbelt Use: always Sunscreen Use: Yes Assistive Devices: Glasses Review of Systems Review of Systems: All systems reviewed & are unremarkable except as noted in HPI & below Physical Exam Constitutional: well developed and well nourished; no acute distress Respiratory: normal respiratory effort; no respiratory distress and no labored breathing Gastrointestinal (Abdomen): Inspection/Auscultation: abdomen normal to inspection Musculoskeletal: Head/Neck/Chest: normocephalic Neurologic: moves all extremities and awake Psychiatric: Orientation: alert and oriented x 3 Results & Data Vital Signs (Past 12 Hours) Vital Signs Temp Pulse Pulse Resp BP Pulse Ox O2 Del Method 04/26/24 07:29 36.6 C 65 16 106/62 95 Room Air 04/26/24 00:40 36.4 C L 55 L 18 143/88 H 95 Room Air 04/25/24 23:52 68 18 97 Room Air 04/25/24 23:32 65 16 141/75 H 96 Room Air PG Care Time/CCT Total # of Minutes Spent Total Time Spent with Patient: Total time spent is greater than 50% in coordination of care (as documented) at patient's floor/unit and/or counseling patient: Coding Level of Care Code 90914 IN/OBS CONSULT LVL 4,60M Diagnoses Hydronephrosis concurrent with and due to calculi of kidney and ureter N13.2
--- NOTE | 2024-04-26 12:56 | Anesthesiology Consultation ---
Date of Service April 26, 2024 Assessment & Plan Chart Review Chart Review: Acceptable Risk for Surgery and Patient NOT seen in Pre Admission Testing History Surgery Operation Date: 04/26/24 08:50 Proposed Procedures p Cystoscopy, Right Ureteroscopy, Laser Lithotripsy and Stent Placement - Pradeep Crowell MD Height/Weight Height: 6 ft Weight: 105.5 kg Allergies Allergy/AdvReac Type Severity Reaction Status Date / Time No Known Allergies Allergy Mild Verified 06/30/23 13:44 Medications Home Medications Medication Instructions Recorded Confirmed Last Taken finasteride 5 mg tablet 5 mg PO DAILY #90 tabs 07/21/23 11/02/23 Unknown oxybutynin chloride 10 mg 10 mg PO DAILY #90 tabs 07/21/23 11/02/23 Unknown tablet,extended release 24 hr tamsulosin 0.4 mg capsule 0.4 mg PO DAILY #90 caps 07/21/23 11/02/23 Unknown Active Medications Generic Name Dose Route Start Last Admin Trade Name Freq PRN Reason Stop Dose Admin Finasteride 5 mg 04/26/24 09:00 04/26/24 08:38 Finasteride 5 Mg Tab PO 05/26/24 08:59 5 mg DAILY ROXY Administration Sodium Chloride 1,000 mls @ 125 mls/hr 04/26/24 11:30 04/26/24 11:53 Nss IV 04/26/24 19:29 125 mls/hr .Q8H ROXY Administration Oxybutynin Chloride 10 mg 04/26/24 09:00 04/26/24 08:38 Oxybutynin Chloride Xl 5 Mg Tabcr PO 05/26/24 08:59 10 mg DAILY ROXY Administration Tamsulosin HCl 0.4 mg 04/26/24 09:00 04/26/24 08:38 Tamsulosin Hcl 0.4 Mg Cap PO 05/26/24 08:59 0.4 mg DAILY ROXY Administration Past Medical History Medical History History of COVID-19 03/2021 Pneumonia due to COVID-19 virus Hx -- 03/2021. No current issues BPH (benign prostatic hyperplasia) Past Family History Family History Other No family history of adverse response to anesthesia Denies family history of Ovarian cancer Prostate cancer Myocardial infarction Breast cancer Colorectal cancer Past Surgical History Surgical History History of tonsillectomy S/P trigger finger release History of colonoscopy Hx of foot surgery Achilles Tendon repair (unsure of side) Social History Smoking Status: Never smoker Do You Dip or Chew Tobacco: No Hx Alcohol Use: No Alcohol type: beer alcohol intake frequency: a few times a month Hx Substance Use: No substance use type: does not use Physical Exam Vital Signs Last Vital Signs Temp 36.6 C 04/26/24 07:29 Pulse 65 04/26/24 07:29 Resp 16 04/26/24 07:29 BP 106/62 04/26/24 07:29 Pulse Ox 95 04/26/24 07:29 O2 Del Method Room Air 04/26/24 07:29 Testing Laboratory Results 04/26/24 07:07 04/26/24 07:07
[2024-04-26] MEDS ORDERED: ATROPINE SULFATE 0.1 MG/ML 10ML SYR IV PRN (16:04)
[2024-04-26] MEDS ORDERED: HYDROmorphone INJ 2 MG/ML SYR/VIAL IV PRN (16:04)
[2024-04-26] MEDS ORDERED: fentaNYL citrate PF 100 MCG/2 ML VIAL IV PRN (16:04)
[2024-04-26] MEDS ORDERED: ePHEDrine sulfate 50 MG/ML AMP IV PRN (16:04)
[2024-04-26] MEDS ORDERED: DEXAMETHASONE SOD INJ 4 MG/ML VIAL ONE ×2 (16:35→17:19)
[2024-04-26] MEDS ORDERED: LIDOCAINE 2% 2 ML VIAL/AMP(20MG/ML) INFIL ONE (16:35)
[2024-04-26] MEDS ORDERED: ONDANSETRON INJ 2 MG/ML 2 ML VIAL ONE (16:35)
[2024-04-26] MEDS ORDERED: KETOROLAC 30 MG/ML VIAL ONE ×2 (16:35→17:21)
[2024-04-26] MEDS ORDERED: PROPOFOL IV EMULSION 10 MG/ML 20 ML VIAL IV ONE (16:35)
--- NOTE | 2024-04-26 16:35 | Hospitalist Progress Note ---
Date of Service April 26, 2024 Assessment & Plan (1) Hydronephrosis concurrent with and due to calculi of kidney and ureter: Plan: CT A/P: obstructing distal right ureteral calculus with associated right perinephric stranding and mild right hydronephrosis and diffuse hydroureter. -UA still pending collection, Will continue on ceftriaxone given possibility of UTI. -continue oxybutynin, Flomax, finasteride. - IVF @ 125/hr while NPO Urology consulted - plan for stent placement today (2) BPH (benign prostatic hyperplasia): Plan: -Has a history of BPH with lower urinary tract symptoms. History of TURP in April 2022. -Follows with urology. (3) Liver lesion: Plan: -Seen on CT of the abdomen pelvis -4 mm hypodense lesion in the right lobe of liver too small to characterize, unchanged from 2020. Follow-up with PCP Plan Dispo: continued inpatient stay, possible d/c later today depending on how pt tolerate OR procedure Admission and Anticipated Discharge Date Admission Date: April 25, 2024 Supervising Physician Co-Signing Physician Notes Attending Attestation - Chart reviewed, care plan d/w FLOYD Blunt. I agree w/ the lemons components of her documentation. s/p Cystoscopy, Right Ureteroscopy, Laser Lithotripsy, Basket stone extraction, and Right ureteral Stent Placement by Dr Crowell, [facility]. Appreciate his assistance today. Julio Cesar Layton MD Subjective Patient seen earlier this morning - present at bedside. nausea and back pain has completely resolved. was able to void spontaneously Review of Systems Review of Systems: All systems reviewed & are unremarkable except as noted in Subjective Physical Exam Physical Exam: General: NAD, VS as above Resp: normal respiratory effort, lungs clear to auscultation CV: RRR, no murmur, Abd: normal bowel sounds, non tender, no hepatosplenomegaly Back:no CVA tenderness Extremities: Moves all extremities, no edema Neuro: A&O x3, Skin: intact, no lesions noted Results & Data Results & Data Vital Signs (Past 12 Hours) Vital Signs Temp Pulse Resp BP Pulse Ox O2 Del Method 04/26/24 15:45 98.6 F 62 20 126/77 97 Room Air 04/26/24 15:16 97.7 F 63 16 110/66 95 Room Air 04/26/24 07:29 97.9 F 65 16 106/62 95 Room Air Laboratory Results cbc and chemistry reviewed PG Care Time/CCT Total # of Minutes Spent Total Time Spent with Patient: Total time spent is greater than 50% in coordination of care (as documented) at patient's floor/unit and/or counseling patient: Coding Level of Care Code 50360 SUB INP/OBS CARE 3/50MIN Diagnoses Hydronephrosis concurrent with and due to calculi of kidney and ureter N13.2 BPH (benign prostatic hyperplasia) N40.0 Liver lesion K76.9
[2024-04-26] MEDS ORDERED: MIDAZOLAM HCL 1 MG/ML 2ML VIAL ONE (16:36)
[2024-04-26] MEDS ORDERED: fentaNYL citrate PF 100 MCG/2 ML VIAL ONE (16:36)
[2024-04-26] MEDS ORDERED: ePHEDrine sulfate 50 MG/ML AMP ONE (17:28)
--- NOTE | 2024-04-26 17:38 | Operative Report ---
PG Post Operative Report Pre & Post Diagnosis Operation Date: 04/26/24 08:50 Pre-Op Diagnosis: Right distal ureteral calculus Post-Op Diagnosis: Right distal ureteral calculus I identified the patient and participated in the time-out.: Yes Procedure Operation Date: 04/26/24 08:50 Actual Procedures p Cystoscopy, Right Ureteroscopy, Laser Lithotripsy, Basket stone extraction, and Right ureteral Stent Placement(Not Applicable) - Pradeep Crowell MD Surgeon Pradeep Crowell MD Senior Sales Associate none Estimated Blood Loss 0 Findings Consistent with Post-Op Diagnosis Specimens none Description of Procedure The patient was identified in the preoperative holding area, appropriate informed consents were reviewed and completed and the patient was transferred to the operative suite. Upon arrival, appropriate antibiotics and anesthesia were administered and the patient was placed in dorsal lithotomy position and prepped and draped in sterile fashion. We in the case to pass 21 Slovak cystoscope with 30 degree lens and visual obturator. Inspection revealed a healthy-appearing urethra and bladder. Prostate was moderately enlarged. Right and left ureteral orifices were in orthotopic position. There was a stone within the prostatic urethra. I irrigated this out of the bladder. After completing my inspection I turned my attention to the right ureteral orifice and cannulated it with a sensor wire and a 5 Slovak open-ended catheter. I then advanced a semirigid ureteroscope into the right ureter. There was a very tight band approximately 2 cm above the UO. I was able to navigate through this with the scope. Immediately above it was dilated ureter and a yellow appearing crystalline calculus. I grasped it first with a basket and attempted to extract it but this tight band would not accommodate the stone. In turn I lasered the stone into approximately 10 pieces and basketed them out of the ureter. There was some small dust remaining but other large fragments that all been irrigated free of the ureter. I completed the case by placing a 6 Slovak by 26 cm double-J stent with a good curl in the kidney as well as the bladder. A string was left attached to the distal aspect of the stent. There were no complications. He was reversed of anesthesia and taken to the recovery room in stable condition. I attest to the content of the Intraoperative Record and any orders documented therein. Any exceptions are noted below.
--- NOTE | 2024-04-26 18:24 | Anesthesiology Progress Note ---
Date of Service April 26, 2024 Anesthesia Post Procedure Vital Signs Vital Signs: Temp Pulse Pulse Pulse Resp BP BP 04/26/24 18:20 66 17 120/72 04/26/24 18:10 36.8 C 62 17 117/67 04/26/24 18:00 61 17 130/71 04/26/24 17:50 72 17 118/72 04/26/24 17:43 37 C 81 17 128/70 04/26/24 15:45 37 C 62 20 126/77 04/26/24 15:16 36.5 C 63 16 110/66 04/26/24 07:29 36.6 C 65 16 106/62 04/26/24 00:40 36.4 C L 55 L 18 143/88 H 04/25/24 23:52 68 18 04/25/24 23:32 65 16 141/75 H 04/25/24 21:33 65 18 109/65 04/25/24 19:44 36.6 C 94 H 16 126/90 Pulse Ox O2 Del Method 04/26/24 18:20 97 Room Air 04/26/24 18:10 97 Room Air 04/26/24 18:00 95 Room Air 04/26/24 17:50 94 Room Air 04/26/24 17:43 94 Room Air 04/26/24 15:45 97 Room Air 04/26/24 15:16 95 Room Air 04/26/24 07:29 95 Room Air 04/26/24 00:40 95 Room Air 04/25/24 23:52 97 Room Air 04/25/24 23:32 96 Room Air 04/25/24 21:33 94 Room Air 04/25/24 19:44 97 Room Air Pain Intensity Right Flank: Pain Intensity: 8 Transfer of Care Handoff Completed per policy Notes Mental Status: alert / awake / arousable and participated in evaluation Patient Amnestic to Procedure: Yes Nausea / Vomiting: adequately controlled Pain: adequately controlled Airway Patency, RR, SpO2: stable & adequate BP & HR: stable & adequate Hydration State: stable & adequate Anesthetic Complications: no major complications apparent and Pt Satisfied with anesthetic care
[2024-04-26] MEDS: cefTRIAXone SODIUM 2,000 MG/50 ML BAG IV SCH (22:30)
[2024-04-27 04:45] LABS: BUN Creatinine Ratio 22.8 (10-20); Calcium 8.5 mg/dl (8.6-10.3); Creatinine Clr Calc Pharmacy 84.3 ml/min; Potassium 4.6 mmol/L (3.5-5.1)
--- NOTE | 2024-04-27 08:02 | Fluoroscopy Report ---
[facility] CLINICAL HISTORY: RIGHT STENT TECHNIQUE: 1 views were obtained with the C-arm in the OR with the above procedure. Total fluoroscopy time was 6.1 seconds. Radiation dose was 1.75 mGy. Comparison: Comparison is made to CT abdomen pelvis 04/25/2024 FINDINGS/IMPRESSION: Intraoperative images were obtained of right stent placement. In the final image s, the stent is in satisfactory position. Please correlate with intraoperative fluoroscopy and operative report. ACT 112: Negative or not required by law. Electronically signed by: Jameson Marie M.D. 04/27/2024 8:00 AM
--- NOTE | 2024-04-27 08:07 | Urology Progress Note ---
Date of Service April 27, 2024 Assessment & Plan (1) Hydronephrosis concurrent with and due to calculi of kidney and ureter: Plan: - Pt POD#1 s/p right ureteroscopy and stone treatment, right ureteral stent - Doing well, progressing as expected - Afebrile, lab work reviewed - creatinine 1.14, WBC 7.8 - Tolerating right ureteral stent with minimal bother - Stent was left on a tether, will arrange office removal for tomorrow - Okay to d/c from perspective when medically stable - Expected clinical course reviewed, all questions answered - Will arrange outpatient follow-up with our service Admission and Anticipated Discharge Date Admission Date: April 25, 2024 Subjective Patient seen and examined at bedside this morning. No acute issues overnight. Tolerating right ureteral stent. Voiding spontaneously, urine clearing. Denies nausea, vomiting, fever or chills. Review of Systems Constitutional: as per Subjective / HPI Genitourinary: + as per Subjective / HPI Physical Exam Constitutional: well developed and well nourished; no acute distress Respiratory: normal respiratory effort; no respiratory distress and no labored breathing Gastrointestinal (Abdomen): Inspection/Auscultation: abdomen normal to inspection Musculoskeletal: Head/Neck/Chest: normocephalic Neurologic: moves all extremities and awake Psychiatric: Orientation: alert and oriented x 3 Results & Data Vital Signs (Past 12 Hours) Vital Signs Temp Pulse Resp BP Pulse Ox O2 Del Method 04/27/24 02:29 36.5 C 59 L 16 98/56 L 94 Room Air 04/26/24 21:40 36.5 C 66 16 105/60 92 Room Air 04/26/24 20:45 36.5 C 75 16 104/62 92 Room Air PG Care Time/CCT Total # of Minutes Spent Total Time Spent with Patient: Total time spent is greater than 50% in coordination of care (as documented) at patient's floor/unit and/or counseling patient: Coding Level of Care Code 00665 SUB INP/OBS CARE 25MIN Diagnoses Hydronephrosis concurrent with and due to calculi of kidney and ureter N13.2
[2024-04-27 08:15] VITALS: BP 118/60; RESP 18; TEMP 97.9; O2SAT 95
--- NOTE | 2024-04-27 08:35 | Discharge Summary ---
Discharge Summary Date of Service April 27, 2024 Principal Dx & Hospital Course #1 = Principal Diagnosis (1) Hydronephrosis concurrent with and due to calculi of kidney and ureter: CT A/P: obstructing distal right ureteral calculus with associated right perinephric stranding and mild right hydronephrosis and diffuse hydroureter. -UA was never collected, inability to urinate likely secondary to stone in prostatic urethra, Op report does not mention infectious looking urine, urology did not recommend abx at discharge. Received CTX while inpatient, but abx not continued at discharge. -continue oxybutynin, Flomax, finasteride. Urology consulted - s/p laser lithotripsy, basket stone extraaction and right ureteral stent placement with Dr. aleman 04/26 - pyridium and tramadol prn at discharge - outpatient follow up tomorrow (2) BPH (benign prostatic hyperplasia): -Has a history of BPH with lower urinary tract symptoms. History of TURP in April 2022. -Follows with urology. (3) Liver lesion: -Seen on CT of the abdomen pelvis -4 mm hypodense lesion in the right lobe of liver too small to characterize, unchanged from 2020. Follow-up with PCP Plan Dispo: discharge to home today Notes For Next Care Provider stable liver lesion on CT A/P Admission HPI Per Admitting Provider Patient is a 63-year-old male with past medical history of BPH status post TURP who presents to the hospital with right-sided back and flank pain that started around 3 PM today. States that the pain is sharp and stabbing. Patient states that he has not been able to urinate since this time. He started to have some nausea and vomiting as well. Denies any abdominal pain. Denies any fevers or chills. Denies any diarrhea, hematuria, headache, chest pain, or shortness of breath. Discharge Exam General: NAD, VS as above Resp: normal respiratory effort, lungs clear to auscultation CV: RRR, no murmur, Abd: normal bowel sounds, non tender, no hepatosplenomegaly Back:no CVA tenderness Extremities: Moves all extremities, no edema Neuro: A&O x3, Skin: intact, no lesions noted Discharge Plan Discharge Items Patient Disposition: Home - Self-Care Reason For Visit: KIDNEY STONE, HYDRONEPHROSIS Discharge Diagnosis: left kidney stone Activity: Resume your previous activity Non-emergency contact: Primary Care Provider Call non-emergency contact if: you have any medication questions, your symptoms worsen, your pain is not controlled, your pain is worsening, your pain is unusual for you and your temperature is above 101 Follow-up/Referrals: Pradeep Aleman MD [Physician] - 04/28/24 10:30 am (f/u for stent removal ) Leticia Johnson MD [Primary Care Provider] - 05/09/24 11:30 am Diet: Regular Addtl Attending Provider Instructions: Mr. Hernandez, You were hospitalized after having nausea and abdominal pain that turned out to be a kidney stone. This was treated in the OR by Dr. Aleman. You have a stent in place to help pass any remaining fragment. The stent may be uncomfortable but not painful. You should continue to take your finasteride, Flomax and oxybutynin at home. You will need to follow up with urology to have the stent removed, their number is above if you do not hear from them for an appointment. I have sent in Pyridium that can be used for pain with urination - please note this may turn your urine orange I have also sent in tramadol for pain if needed. You can also take over the counter Tylenol and ibuprofen. A liver lesion was seen on the CT of your abdomen and pelvis - this has been there since 2020 and unchanged. You can discuss with your PCP if they recommend any additional follow up. CONTACT YOUR PRIMARY CARE PROVIDER if you experience any of the following: Shortness of breath or difficulty breathing Fevers or chills Feeling tired with normal activity or experiencing dizziness or fainting Difficulty following your treatment plan, or difficulty taking medications CALL 911 OR GO TO THE EMERGENCY DEPARTMENT if you experience any of the following: Severe abdominal pain or nausea/vomiting Severe chest pain, or chest pain that radiates (moves) to your jaw or arm Sudden, severe shortness of breath or difficulty breathing Thank you for allowing us to participate in your care. Pham Blunt PA-C Pending Studies at Discharge: No Stand-Alone Forms: My [employer], Smoking Cessation Medications and DC Order Prescriptions: New phenazopyridine [Pyridium] 100 mg tablet 100 mg PO Q8H PRN (Reason: pain) Qty: 6 0RF tramadol 50 mg tablet 50 mg PO Q8H PRN (Reason: pain) Qty: 6 0RF Continued finasteride 5 mg tablet 5 mg PO DAILY Qty: 90 3RF tamsulosin 0.4 mg capsule 0.4 mg PO DAILY Qty: 90 3RF oxybutynin chloride 10 mg tablet extended release 24hr 10 mg PO DAILY Qty: 90 3RF Discharge Orders: Discharge Order (Routine); Ordered 04/27/24 Ordered By: Pham Tijerina/Other Patient Handouts: Having a Ureteral Stent Admission Data Admit Date/Time: 04/25/24 23:56 Attending Provider: Julio Cesar Layton Admit Provider: Genevieve Duckworth Primary Care Provider: Leticia Johnson Other Providers: Genevieve Duckworth; Cheko Boss. Other Interventions: Discharge Summary Assessment (RN) Last Done: 04/27/24 09:39 Hospital Stay Data Consultations 04/25/24 23:13 ED Decision to Admit Stat 04/26/24 00:49 Consult Urology Routine Procedures Performed Operation Date: 04/26/24 08:50 Actual Procedures p Cystoscopy, Right Ureteroscopy, Laser Lithotripsy, Basket stone extraction, an d(Not Applicable) - Pradeep Aleman MD s Right ureteral Stent Placement(Not Applicable) - Pradeep Aleman MD Diagnostic Imagining Performed Abdomen/Pelvis CT 04/25/24 19:48 Exam(s): CT ABDOMEN + PELVIS Without Contrast EXAM: CT Abdomen and Pelvis Without Intravenous Contrast CLINICAL HISTORY: flank pain. TECHNIQUE: Axial computed tomography images of the abdomen and pelvis without intravenous contrast. CTDI is 27.1 mGy and DLP is 1484.98 mGy-cm. Automated exposure control was utilized for the study. A dose lowering technique was utilized adhering to the principles of ALARA. COMPARISON: 03-31-2021 FINDINGS: Lung bases: Unremarkable. No mass. No consolidation. ABDOMEN: Liver: Unchanged 4 mm hypodense lesion right lobe of liver to small to characterize. Gallbladder and bile ducts: Unremarkable. No calcified stones. No ductal dilation. Pancreas: Unremarkable. No ductal dilation. Spleen: Unremarkable. No splenomegaly. Adrenals: Unremarkable. No mass. Kidneys and ureters: Mild right perinephric stranding. Mild right hydronephrosis and diffuse hydroureter to the level of a obstructing 4.9 x 4.2 mm calculus in the distal right ureter just proximal to the ureterovesicular junction. Punctate nonobstructing calculus in the midpole of the right kidney. Left kidney and ureter are unremarkable. Stomach and bowel: No obstruction or ileus. Scattered colonic diverticuli without evidence for diverticulitis. PELVIS: Appendix: No findings to suggest acute appendicitis. Bladder: Partially contracted. No stones. Reproductive: Unremarkable as visualized. ABDOMEN and PELVIS: Intraperitoneal space: No free air. No free fluid. Bones/joints: No acute fracture. Degenerative changes of the spine. Soft tissues: Unremarkable. Vasculature: Unremarkable. No abdominal aortic aneurysm. Lymph nodes: Unremarkable. No enlarged lymph nodes. IMPRESSION: Obstructing distal right ureteral calculus with associated right perinephric stranding and mild right hydronephrosis and diffuse hydroureter. Additional punctate nonobstructing right renal calcification. Scattered colonic diverticulosis without diverticulitis. 4 mm hypodense lesion in the right lobe of liver too small to characterize, unchanged from 2020. For patients with a low risk of malignancy, no further follow-up is necessary. For patients with high risk of malignancy (known malignancy with a propensity to metastasize to the liver, cirrhosis, and/or other hepatic risk factors), recommend follow-up abdominal MR in 3-6 months. Electronically signed by: Constantin Angel M.D. 04/25/24 23:04 PM Abdomen Fluoroscopy 04/26/24 00:00 [place] [facility] CLINICAL HISTORY: RIGHT STENT TECHNIQUE: 1 views were obtained with the C-arm in the OR with the above procedure. Total fluoroscopy time was 6.1 seconds. Radiation dose was 1.75 mGy. Comparison: Comparison is made to CT abdomen pelvis 04/25/2024 FINDINGS/IMPRESSION: Intraoperative images were obtained of right stent placement. In the final images, the stent is in satisfactory position. Please correlate with intraoperative fluoroscopy and operative report. ACT 112: Negative or not required by law. Electronically signed by: Jameson Marie M.D. 04/27/2024 8:00 AM Pending Results Patient Have Any Pending Studies at Discharge: No Discharge Instructions Given to Patient (Per Discharging Provider) Renzo Nielson were hospitalized after having nausea and abdominal pain that turned out to be a kidney stone. This was treated in the OR by Dr. Aleman. You have a stent in place to help pass any remaining fragment. The stent may be uncomfortable but not painful. You should continue to take your finasteride, Flomax and oxybutynin at home. You will need to follow up with urology to have the stent removed, their number is above if you do not hear from them for an appointment. I have sent in Pyridium that can be used for pain with urination - please note this may turn your urine orange I have also sent in tramadol for pain if needed. You can also take over the counter Tylenol and ibuprofen. A liver lesion was seen on the CT of your abdomen and pelvis - this has been there since 2020 and unchanged. You can discuss with your PCP if they recommend any additional follow up. CONTACT YOUR PRIMARY CARE PROVIDER if you experience any of the following: Shortness of breath or difficulty breathing Fevers or chills Feeling tired with normal activity or experiencing dizziness or fainting Difficulty following your treatment plan, or difficulty taking medications CALL 911 OR GO TO THE EMERGENCY DEPARTMENT if you experience any of the following: Severe abdominal pain or nausea/vomiting Severe chest pain, or chest pain that radiates (moves) to your jaw or arm Sudden, severe shortness of breath or difficulty breathing Thank you for allowing us to participate in your care. Pahm Blunt PA-C Supervising Physician Co-Signing Physician Notes Attending Attestation and Discharge Note: Pt seen/examined, chart reviewed, discharge care plan d/w FLOYD Blunt. I agree w/ the lemons components of her discharge documentation. 63yo male with history of BPH s/p TURP who presented with right sided back/flank pain. CT a/p at time of admission showed an obstructing right-sided kidney stone, 5mm in size. Seen by [facility], and ultimately was s/p Cystoscopy, Right Ureteroscopy, Laser Lithotripsy, Basket stone extraction, and Right ureteral Stent Placement by Dr Aleman, [facility]. Post-op did well with improved pain. Discharge creatinine was 1.1. He will f/u with [facility] 24 hours post-discharge for stent retrieval. He had no evidence of infection while here. Discharge exam: gen - NAD, pleasant neck - no JVD heart - RRR, s1 s2, no murmur lungs - CTA b/l abd - soft NT ND BS+; no flank tenderness ext - no edema, pulses 2+ b/l Julio Cesar Layton MD Total Time Total Time Spent Total Time Spent (In Minutes): Time spent day of discharge 32 minutes including direct patient care, medication reconciliation, documentation, review of labs and images, and coordination of care. Coding Level of Care Code 35037 INP/OBS DISCH >30 MIN Diagnoses Hydronephrosis concurrent with and due to calculi of kidney and ureter N13.2 BPH (benign prostatic hyperplasia) N40.0 Liver lesion K76.9
[2024-04-27 08:54] VITALS: PULSE 62
[2024-05-06 14:33] LABS: Component 2 DNR; Source RIGHT URETERAL STONE
== END 2024-04-27 11:00 | disposition home or self-care (01) | DRG 661 ==
LOC: ED 19:39 → 3W 23:56 → INTOOBSV 23:56 → SUATTDRO 23:56 → 3W 04-26 00:50
DX: K76.89 Other specified diseases of liver; N40.0 Benign prostatic hyperplasia without lower urinary tract symptoms; Z79.899 Other long term (current) drug therapy; Z90.79 Acquired absence of other genital organ(s); N13.2 Hydronephrosis with renal and ureteral calculous obstruction